=== PATIENT | female | born 1950 | race Caucasian/White ===

== ENCOUNTER 2017-08-23 00:39 | Emergency (ER) | payer OTHER ==
--- NOTE | 2017-08-23 01:03 | PDOC ---
History of Present Illness - General History Source: Patient Exam Limitations: No Limitations - History of Present Illness Initial Comments: 08/23/17 01:24 The patient is a 67 year old female with past medical history of IDDM and CAD s/ p stenting x2 BIBA for high blood sugar. The patient states she has been in [place] now for two months and is getting this week. She states she recently ran out of insulin, stating her finger stick today was in the 500s. She reports that when her sugar is high she gets a tightness in her chest and mild shortness of breath which she has presently. She also notes she has chronic leg swelling, left worse than right. She denies any palpitations, diaphoresis, cough, headache, or focal neurological deficits. She denies any recent illness, fevers, or chills. Denies any nausea, vomiting, diarrhea, or urinary complaints. <Jami Catalan - Last Filed: 08/23/17 01:24> <Carlyn Redd - Last Filed: 08/28/17 02:27> - General Chief Complaint: Blood Sugar Problem Stated Complaint: BLOOD SUGAR PROBLEM Time Seen by Provider: 08/23/17 01:03 Past History <Jami Catalan - Last Filed: 08/23/17 01:24> <Carlyn Redd - Last Filed: 08/28/17 02:27> - Past Medical History Allergies/Adverse Reactions: Allergies Allergy/AdvReac Type Severity Reaction Status Date / Time No Allergy Information Allergy Verified 08/23/17 01:13 Available Home Medications: Ambulatory Orders Allopurinol [Zyloprim -] 100 mg PO DAILY 08/23/17 Bumetanide 1 mg PO DAILY 08/23/17 Calcium Carb/Magnesium Hydrox [Antacid Chewable Tablet] 1 each PO DAILY Clopidogrel Bisulfate [Clopidogrel] 75 mg PO HS 08/23/17 Gabapentin 800 mg PO BID 08/23/17 Hydroxyzine HCl 25 mg PO HS 08/23/17 Insulin Lispro [Humalog Kwikpen U-100] 1 unit SQ AC #10 insuln.pen 08/23/17 Insulin NPH Hum/Reg Insulin Hm [Humulin 70/30 Kwikpen] 50 unit SQ BID 08/23/17 Insulin NPH Hum/Reg Insulin Hm [Humulin 70/30 Kwikpen] 50 unit SQ BID #30 insuln.pen 08/23/17 Lactulose 10 gm PO TID 08/23/17 Pramipexole Di-HCl [Mirapex] 0.5 mg PO BID 08/23/17 Propranolol HCl 80 mg PO BID 08/23/17 Spironolactone 25 mg PO DAILY 08/23/17 Tramadol HCl 50 mg PO QID 08/23/17 Review of Systems - Review of Systems Able to Perform ROS?: Yes Comments:: 08/23/17 01:28 CONSTITUTIONAL: Absent: fever, chills, diaphoresis, generalized weakness, malaise, loss of appetite HEENT: Absent: rhinorrhea, nasal congestion, throat pain, throat swelling, difficulty swallowing, mouth swelling, ear pain, eye pain, visual Changes CARDIOVASCULAR: (+) chest tightness, peripheral edema Absent: syncope, palpitations, irregular heart rate, lightheadedness, RESPIRATORY: (+) shortness of breath Absent: cough, dyspnea with exertion, orthopnea, wheezing, stridor, hemoptysis GASTROINTESTINAL: Absent: abdominal pain, abdominal distension, nausea, vomiting, diarrhea, constipation, melena, hematochezia GENITOURINARY: Absent: dysuria, frequency, urgency, hesitancy, hematuria, flank pain, genital pain MUSCULOSKELETAL: Absent: myalgia, arthralgia, joint swelling SKIN: Absent: rash, itching, pallor HEMATOLOGIC/IMMUNOLOGIC: Absent: easy bleeding, easy bruising, lymphadenopathy, frequent infections ENDOCRINE: Absent: unexplained weight gain, unexplained weight loss, heat intolerance, cold intolerance NEUROLOGIC: Absent: headache, focal weakness or paresthesias, dizziness, unsteady gait, seizure, mental status changes, bladder or bowel incontinence PSYCHIATRIC: Absent: anxiety, depression, suicidal or homicidal ideation, hallucinations. All Other Systems: Reviewed and Negative <Jami Catalan - Last Filed: 08/23/17 01:24> *Physical Exam - Vital Signs Last Vital Signs Temp Pulse Resp BP Pulse Ox 98.2 F 98 H 144/72 08/23/17 00:40 08/23/17 00:40 08/23/17 00:40 - Physical Exam Comments: 08/23/17 01:31 GENERAL: Well developed, well nourished. Awake and alert. No acute distress. HEENT: Normocephalic, atraumatic. PERRLA, EOMI. No conjunctival pallor. Sclera are non- icteric. Moist mucous membranes. Oropharynx is clear. NECK: Supple. Full ROM. No JVD. Carotid pulses 2+ and symmetric, without bruits. No thyromegaly. No lymphadenopathy. CARDIOVASCULAR: Regular rate and rhythm. No murmurs, rubs, or gallops. Distal pulses are 2+ and symmetric. PULMONARY: No evidence of respiratory distress. Lungs clear to auscultation bilaterally. No wheezing, rales or rhonchi. ABDOMINAL: Soft. Non-tender. Protuberant. No rebound or guarding. No organomegaly. Normoactive bowel sounds. MUSCULOSKELETAL Normal range of motion at all joints. No bony deformities or tenderness. No CVA tenderness. EXTREMITIES: Chronic venous stasis on bilateral lower extremities, left worse than right. No cyanosis. No clubbing.No calf tenderness. SKIN: Warm and dry. Normal capillary refill. No rashes. No jaundice. NEUROLOGICAL: Alert, awake, appropriate. Cranial nerves 2-12 intact. Gait is normal without ataxia. PSYCHIATRIC: Cooperative. Good eye contact. Appropriate mood and affect. <Jami Catalan - Last Filed: 08/23/17 01:24> ED Treatment Course - LABORATORY CBC & Chemistry Diagram: 08/23/17 01:52 08/23/17 01:52 <Carlyn Redd - Last Filed: 08/28/17 02:27> Medical Decision Making - Medical Decision Making 08/23/17 01:14 67-year-old female ambulance because she's had elevated blood sugars for the past 2 months She also states that she's had intermittent shortness of breath and some intermittent chest pain over the past month. She does have a history of coronary artery disease and is status post 2 stents. She takes Plavix daily. She does have a chronically swollen left leg and stated that she had a negative duplex Doppler in the past And currently is calm, relaxed speaking in full sentences. She is not tachycardic or hypoxic. Lungs are clear to auscultation and the and rebound. There is no gallops, murmurs or rubs, neck is no bruits no JVD. Chronic venous stasis changes in her legs and her left leg is larger than her right She states that she is from [place] and left 2 months ago. She said that she has a new physician but hasn't been able to really follow up with her today. She ran out of her insolent and a day or 2 ago. She is an insulin-dependent diabetic for the past 30 years. Patient moved up from [place] 2 months ago to be [facility] and plans to get next week plan-EKG,., CBC, coags, cardiac chest x-ray <Carlyn Redd - Last Filed: 08/28/17 02:27> *DC/Admit/Observation/Transfer - Attestations Scribe Attestion: 08/23/17 01:33 Documentation prepared by Jami Catalan, acting as healthcare or medical for Carlyn Redd MD. <Jami Catalan - Last Filed: 08/23/17 01:24> <Carlyn Redd - Last Filed: 08/28/17 02:27> Diagnosis at time of Disposition: Hyperglycemia - Discharge Dispostion Disposition: HOME Condition at time of disposition: Stable - Prescriptions Prescriptions: Insulin Lispro [Humalog Kwikpen U-100] 1 unit SQ AC #10 [email or web address] Insulin NPH Hum/Reg Insulin Hm [Humulin 70/30 Kwikpen] 50 unit SQ BID #30 insuln.pen
[2017-08-23 01:09] VITALS: BMI 36.6
[2017-08-23] MEDS ORDERED: SODIUM CHLORIDE 1,000 ML IV STA ×2 (01:26→03:09)
[2017-08-23 02:23] LABS: BASO % 0.5 % (0-2.0); EOS % 2.5 % (0-4.5); HEMATOCRIT 40.4 % (32.4-45.2); HEMOGLOBIN 13.5 GM/dL (10.7-15.3); LYMPH % 32.9 % (8-40); MCH 31.8 pg (25.7-33.7); MCHC 33.5 g/dl (32.0-36.0); MEAN PLT VOLUME 11.1 fl (7.5-11.1); MONO % 7.7 % (3.8-10.2); NEUT % 56.4 % (42.8-82.8); PLATELET COUNT 135 K/MM3 (134-434); RBC 4.25 M/mm3 (3.60-5.2); WHITE BLOOD COUNT 4.8 K/mm3 (4.0-10.0)
[2017-08-23 02:43] LABS: INR 0.99 (0.82-1.09); PROTHROMBIN TIME (PATIENT) 11.2 SEC (9.7-13.0)
[2017-08-23 02:54] LABS: ANION GAP 7 (8-16); BILIRUBIN,TOTAL 0.7 mg/dL (0.2-1.0); BLOOD UREA NITROGEN 33 mg/dL (7-18); CALCIUM 8.7 mg/dL (8.5-10.1); CHLORIDE 97 mmol/L (98-107); CO2 28 mmol/L (21-32); CREATININE 1.5 mg/dL (0.55-1.02); POTASSIUM 4.5 mmol/L (3.5-5.1); SGOT/AST 24 U/L (15-37); SGPT/ALT 38 U/L (12-78); SODIUM 132 mmol/L (136-145); TOT PROT 6.9 g/dl (6.4-8.2)
[2017-08-23 02:57] LABS: ALK PHOS 124 U/L (45-117)
[2017-08-23 03:05] LABS: GLUCOSE,RANDOM 545 mg/dL (74-106)
[2017-08-23] MEDS ORDERED: INSULIN REGULAR HUMAN 100 UNITS/ML *VIAL IVPUSH ONE (03:10)
[2017-08-23] MEDS ORDERED: INSULIN REGULAR HUMAN 100 UNITS/ML *VIAL ONE (03:13)
--- NOTE | 2017-08-23 03:13 | PDOC ---
*Physical Exam - Vital Signs Last Vital Signs Temp Pulse Resp BP Pulse Ox 98.2 F 98 H 144/72 08/23/17 00:40 08/23/17 00:40 08/23/17 00:40 ED Treatment Course - LABORATORY CBC & Chemistry Diagram: 08/23/17 01:52 08/23/17 01:52 - ADDITIONAL ORDERS Additional order review: Laboratory Results 08/23/17 08/23/17 01:52 01:52 PT with INR 11.20 INR 0.99 Sodium 132 L Potassium 4.5 Chloride 97 L Carbon Dioxide 28 Anion Gap 7 L BUN 33 H Creatinine 1.5 H Creat Clearance w eGFR 34.64 Random Glucose 545 H* Calcium 8.7 Total Bilirubin 0.7 AST 24 ALT 38 Alkaline Phosphatase 124 H Creatine Kinase 108 Troponin I < 0.02 Total Protein 6.9 Albumin 3.0 L 08/23/17 01:52 RBC 4.25 MCV 95.0 MCHC 33.5 RDW 13.0 MPV 11.1 Neutrophils % 56.4 Lymphocytes % 32.9 Monocytes % 7.7 Eosinophils % 2.5 Basophils % 0.5 - Medications Given in the ED: ED Medications Discontinued Medications Generic Name Dose Route Start Last Admin Trade Name Freq PRN Reason Stop Dose Admin Sodium Chloride 1,000 mls @ 1,000 mls/hr 08/23/17 01:26 08/23/17 02:02 Normal Saline - IV 08/23/17 02:25 1,000 mls/hr ASDIR STA Administration Medical Decision Making - Medical Decision Making 08/23/17 03:11 I received me Ontiveros on sign out She presented to the ER due to elevated blood glucose CMP demonstrates glucose of >500 Pt states she takes NPH 0/30 50 units BID with blood glucose levels of 300s Laboratory Tests 08/23/17 01:52 Sodium 132 L Potassium 4.5 Chloride 97 L Carbon Dioxide 28 Anion Gap 7 L BUN 33 H Creatinine 1.5 H Random Glucose 545 H* Creatine Kinase 108 Troponin I < 0.02 08/23/17 03:12 Will given Regular insulin 12 units Will given an additional Liter of IV Fluids Will repeat troponin 08/23/17 06:08 Laboratory Tests 08/23/17 05:27 POC Glucometer [id number] This is approximately where he blood glucose typically runs Pending repeat treop Annticipate discharge Clinical Impression: hyperglycemia, initial presentation medication non compliance, initial presentation 08/23/17 06:28 Laboratory Tests 08/23/17 05:30 Creatine Kinase 83 Troponin I < 0.02 *DC/Admit/Observation/Transfer Diagnosis at time of Disposition: Hyperglycemia - Discharge Dispostion Disposition: HOME Condition at time of disposition: Stable Decision to Admit order: No - Prescriptions Prescriptions: Insulin Lispro [Humalog Kwikpen U-100] 1 unit SQ AC #10 [email or web address].pen Insulin NPH Hum/Reg Insulin Hm [Humulin 70/30 Kwikpen] 50 unit SQ BID #30 insuln.pen - Referrals - Patient Instructions - Post Discharge Activity
[2017-08-23 07:19] VITALS: BP 136/78; PULSE 89; TEMP 98.3
--- NOTE | 2017-08-23 13:23 | EKG ---
Test Reason : Blood Pressure : / mmHG Vent. Rate : 067 BPM Atrial Rate : 067 BPM P-R Int : 206 ms QRS Dur : 092 ms QT Int : 430 ms P-R-T Axes : 040 038 029 degrees QTc Int : 454 ms NORMAL SINUS RHYTHM NORMAL ECG NO PREVIOUS ECGS AVAILABLE Confirmed by NIKOLE SAMSON, EMILI ([id number]) on 08/23/2017 1:22:43 PM Referred By: Confirmed By:EMILI AGUSTIN MD
== END 2017-08-23 07:19 | disposition home or self-care (01) ==
LOC: JER 00:39
PROC: 3E033VG Introduction of Insulin into Peripheral Vein, Percutaneous Approach (ICD-10-PCS; principal; 2017-08-23)
PROC: 3E0337Z Introduction of Electrolytic and Water Balance Substance into Peripheral Vein, Percutaneous Approach (ICD-10-PCS; 2017-08-23)
DX: I25.10 Atherosclerotic heart disease of native coronary artery without angina pectoris (principal); E11.65 Type 2 diabetes mellitus with hyperglycemia; Z79.4 Long term (current) use of insulin
CPT/HCPCS: 36415; 71045-TC-FY; 80053; 82009; 82550; 82962; 83880; 84484; 85025; 85610; 93005; 93010; 93971-TC; 96361; 96374; 99282-25; J7030